=== PATIENT | female | born 1970 | race Caucasian/White ===

== ENCOUNTER → 2018-05-07 | Outpatient (CLI) | payer OTHER ==
[~2018-05-07] MED LIST: DICL75ER PO; ESTR2 PO; HYDMETSO BOTHEYES; IBUP800 PO; MILK OF MAGNESIA PO; NAPR500 PO; PREG150 PO; PROM25 PO; Percocet 10-321 EACH PO; Polymyxin B-Tmp10 ML OD; SIME80CH PO; TRAM50 PO; Tylenol325 MG PO; VITS/SUPPS
[2018-05-09 14:07] LABS: COTININE Negative ng/mL (Cutoff=300)
== END | disposition home or self-care (01) ==
LOC: LAB SHORT 13:42 → LAB 13:42
PROVIDERS: Orthopaedic Surgery
DX: F17.200 Nicotine dependence, unspecified, uncomplicated (principal); Z79.899 Other long term (current) drug therapy

== ENCOUNTER 2018-06-11 13:15 | Day surgery (SDC) | payer OTHER ==
[~2018-06-11] VITALS: Ht 165.1 cm; Wt 107.5 kg
[~2018-06-11 13:15] MED LIST changes: +AM STRESS PO; +ANDROGEL75 GM PO; +DHEA PO; +Furosemide20 MG PO; +NP THYROID90 MG PO; +POTA10T PO; +PROG100 PO; +Zantac150 MG PO
--- NOTE | 2018-06-11 13:39 | NUR ---
Ambulatory in Day Surgery History, Chart, Medications and Allergies reviewed before start of procedure.Lungs clear T/O to Auscultation. Patient confirms NPO status and agrees with scheduled surgery.
--- NOTE | 2018-06-11 19:26 | NUR ---
SHIFT SUMMARY POD #0 RIGHT TKA PT IS TOLERATING PO INTAKE. 2 OXYCODONE & TORADOL GIVEN FOR PAIN. ANGELI WRAP APPEARS C/D/I. TEDS, POLAR PACK & SCD'S ARE IN PLACE. CIRC WNL. CALL LIGHT IN REACH
[2018-06-12 04:25] LABS: BASOPHILS ABSOLUTE AUTO 0.06 K/mm3 (0.00-0.23); BASOPHILS PERCENT AUTO 0 % (0-2); EOSINOPHILS ABSOLUTE AUTO 0.08 K/mm3 (0.00-0.68); EOSINOPHILS PERCENT AUTO 1 % (0-6); Hematocrit 37.7 % (33.0-51.0); Hemoglobin 12.5 g/dL (11.5-16.0); IMMATURE GRAN ABSOLUTE AUTO 0.09 K/mm3 (0.00-0.10); IMMATURE GRAN PERCENT AUTO 1 % (0-1); LYMPHOCYTES ABSOLUTE AUTO 2.14 K/mm3 (0.84-5.20); LYMPHOCYTES PERCENT AUTO 13 % (21-46); MONOCYTES ABSOLUTE AUTO 1.76 K/mm3 (0.16-1.47); MONOCYTES PERCENT AUTO 10 % (4-13); Mean Corpuscular HGB 29.5 pg (26.0-34.0); Mean Corpuscular HGB Conc 33.2 g/dL (31.5-36.5); Mean Corpuscular Volume 89 fL (80-100); NEUTROPHILS ABSOLUTE AUTO 12.91 K/mm3 (1.96-9.15); NEUTROPHILS PERCENT AUTO 76 % (41-73); Platelet Count 271 K/mm3 (150-400); RDW Coefficient Variation 12.4 % (11.7-14.2); RDW Standard Deviation 40.4 fL (35.1-46.3); Red Blood Cell Count 4.24 M/mm3 (3.80-5.20); White Blood Cell Count 17.04 K/mm3 (4.00-11.30)
--- NOTE | 2018-06-12 04:28 | NUR ---
POD 1 S/P RTKA. HAS DONE WELL DURING NIGHT. PT HAS BEEN A BIT MORE PAINFUL DURING SHIFT REQUIRING IV NARCOTICS. PT HAS BEEN UP AMBULATING IN HALLWAY AND TOLERATING WELL. PT DID GET NAUSEOUS ONCE BUT NO EMESIS. VOIDING WELL. DRESSING CDI WITH GOOD CIRC CHECKS. PLAN FOR DC HOME TODAY AFTER CLEARS PT/OT
[2018-06-12 04:48] LABS: Anion Gap 7 mmol/L (6-16); Blood Urea Nitrogen 12 mg/dL (8-24); Bun/Creatinine Ratio 27.1 (12.0-20.0); CO2, Blood 25 mmol/L (21-32); Calcium, Blood 8.4 mg/dL (8.5-10.1); Chloride, Blood 107 mmol/L (98-108); Creatinine, Blood 0.44 mg/dL (0.40-1.00); Glomerular Filtration Rate >60 (60-); Glucose, Blood 104 mg/dL (70-99); Magnesium, Blood 2.1 mg/dL (1.6-2.4); Potassium, Blood 3.8 mmol/L (3.5-5.5); Sodium, Blood 139 mmol/L (136-145)
--- NOTE | 2018-06-12 06:53 | NUR ---
recvd report from previous shift rn kaden, pt sitting up in bed, a/0 x 4, pleasant/cooperative, bed in lowest position, bed rails up x 2, call light within reach
--- NOTE | 2018-06-12 09:06 | NUR ---
physical therapy working with patient
[2018-06-12] MEDS ORDERED: Percocet 5-3251 EACH PO (15:25)
[2018-06-12] MEDS ORDERED: ASPI81CH PO (15:26)
--- NOTE | 2018-06-12 16:23 | NUR ---
pt provided with discharge instructions and printed material, peripheral iv removed wnl. pt provided with aquacel dressing for one week change. pt's belongings taken to car by her daughter. pt escorted to vehicle via wheelchair
== END 2018-06-12 16:22 | disposition home or self-care (01) ==
LOC: ORSCMMR 13:15 → ORD 15:00 → SURS 17:23 → ORSCMMR 06-12 16:22
PROVIDERS: Orthopaedic Surgery
PROC: 0SRC0JA Replacement of Right Knee Joint with Synthetic Substitute, Uncemented, Open Approach (ICD-10-PCS; principal; 2018-06-11 15:00)
DX: M17.11 Unilateral primary osteoarthritis, right knee (principal); Z01.818 Encounter for other preprocedural examination; E03.9 Hypothyroidism, unspecified; F17.210 Nicotine dependence, cigarettes, uncomplicated; E66.01 Morbid (severe) obesity due to excess calories; Z68.39 Body mass index [BMI] 39.0-39.9, adult; Z79.899 Other long term (current) drug therapy
CPT/HCPCS: 36415; 73560-RT; 80048; 83735; 85025; 86850; 86900; 86901; 88300; 97110; 97116; 97162; 97530; C1776; J0171; J0735; J1100; J1170; J1885; J2250; J2405; J2795; J3010; J3370; J7120; Q0163

== ENCOUNTER → 2019-05-23 | Outpatient (CLI) | payer OTHER ==
[~2019-05-23] MED LIST changes: +ASPI81CH PO; +Percocet 5-3251 EACH PO
== END | disposition home or self-care (01) ==
LOC: LAB EV 10:02 → LAB SHORT 10:02
DX: J02.9 Acute pharyngitis, unspecified (principal)
CPT/HCPCS: 87081

== ENCOUNTER → 2021-04-02 | Outpatient (CLI) | payer OTHER ==
[2021-04-12 12:10] LABS: COTININE <10.0 ng/mL (.); NICOTINE <10.0 ng/mL (.)
== END | disposition home or self-care (01) ==
LOC: LAB SHORT 09:26
PROVIDERS: Orthopaedic Surgery
DX: Z09 Encounter for follow-up examination after completed treatment for conditions other than malignant neoplasm (principal); Z87.891 Personal history of nicotine dependence
CPT/HCPCS: G0480

== ENCOUNTER 2021-05-15 08:04 | Day surgery (SDC) | payer OTHER ==
[~2021-05-15] VITALS: Ht 165.1 cm; Wt 79.6 kg
[~2021-05-15 08:04] MED LIST changes: -ANDROGEL75 GM PO; +ANDROGEN PO; +NABU500 PO
--- NOTE | 2021-05-15 08:59 | NUR ---
PT ADMITTED TO [facility]. AGREES WITH PLANNED SURGERY.
--- NOTE | 2021-05-15 16:07 | NUR ---
SHIFT SUMMARY PT A&OX4, VSS/RA. S/P L TKA, AQUACEL/ANGELI WRAP CDI, POLAR NEREIDA/TEDS/SCDS ON, ELEVATED. PAIN MANAGED WITH TYLENOL, TORADOL AND 5 MG OXY. GIOVANNY PO. AMB SBA W/FWW & GB, UP TO CHAIR. PHYSICAL THERAPY EVAL'D, WILL BE BACK IN AM. VOIDING. WILL REPORT TO CRYTSAL SANFORD RN.
--- NOTE | 2021-05-16 03:12 | NUR ---
SHIFT SUMMARY A/O X4. POD2 L TKA- AQUACEL AND ANGELI WRAP IN PLACE, C/D/I. AMBULATING TO THE BATHROOM WITH FWW, GB, AND SBA. TOLERATING PO INTAKE. VOIDING. MANAGING PAIN WITH PO PAIN MEDICATION. WILL CONTINUE TO MONITOR AND REPORT TO ONCOMING RN.
[2021-05-16 04:37] LABS: BASOPHILS ABSOLUTE AUTO 0.02 K/mm3 (0.00-0.23); BASOPHILS PERCENT AUTO 0 % (0-2); EOSINOPHILS ABSOLUTE AUTO 0.03 K/mm3 (0.00-0.68); EOSINOPHILS PERCENT AUTO 0 % (0-6); Hematocrit 36.6 % (33.0-51.0); Hemoglobin 12.3 g/dL (11.5-16.0); IMMATURE GRAN ABSOLUTE AUTO 0.05 K/mm3 (0.00-0.10); IMMATURE GRAN PERCENT AUTO 0 % (0-1); LYMPHOCYTES ABSOLUTE AUTO 2.62 K/mm3 (0.84-5.20); LYMPHOCYTES PERCENT AUTO 18 % (21-46); MONOCYTES ABSOLUTE AUTO 1.45 K/mm3 (0.16-1.47); MONOCYTES PERCENT AUTO 10 % (4-13); Mean Corpuscular HGB 29.3 pg (26.0-34.0); Mean Corpuscular HGB Conc 33.6 g/dL (31.5-36.5); Mean Corpuscular Volume 87 fL (80-100); Mean Platelet Volume 11.2 fL (9.1-12.4); NEUTROPHILS ABSOLUTE AUTO 10.32 K/mm3 (1.96-9.15); NEUTROPHILS PERCENT AUTO 71 % (41-73); Platelet Count 218 K/mm3 (150-400); RDW Coefficient Variation 12.2 % (11.7-14.2); White Blood Cell Count 14.49 K/mm3 (4.00-11.30)
[2021-05-16 04:58] LABS: Anion Gap 6 mmol/L (6-16); Blood Urea Nitrogen 13 mg/dL (8-24); Bun/Creatinine Ratio 31.6 (12.0-20.0); CO2, Blood 27 mmol/L (21-32); Calcium, Blood 8.5 mg/dL (8.5-10.1); Chloride, Blood 107 mmol/L (98-108); Creatinine, Blood 0.41 mg/dL (0.40-1.00); Glomerular Filtration Rate >60 (60-); Glucose, Blood 109 mg/dL (70-99); Potassium, Blood 3.9 mmol/L (3.5-5.5); Sodium, Blood 140 mmol/L (136-145)
[2021-05-16] MEDS ORDERED: ASPI81CH PO (08:49)
[2021-05-16] MEDS ORDERED: OXAYDO5 M1 PO (08:50)
--- NOTE | 2021-05-16 11:38 | NUR ---
DISCHARGE PT DISCHARGED HOME FROM UNIT AT APROX 1138. PT GIVEN WRITTEN AND VERBAL DISCHARGE INSTRUCTIONS AND VERBALIZED UNDERSTANDING OF THESE INSTRUCTIONS. PT CLEARED BY PT, VOIDING, TAKING GOOD PO WITH NO C/O N/V. WC TO CAR, ASSIST W/WALKER INTO CAR. PT TOLERATED WELL.
== END 2021-05-16 11:38 | disposition home or self-care (01) ==
LOC: SURS 08:04 → ORSCMMR 08:04 → ORD 11:00 → ORSCMMR 11:00 → SURS 13:29 → ORSCMMR 05-16 11:38
PROVIDERS: Orthopaedic Surgery
PROC: 0SRD0JA Replacement of Left Knee Joint with Synthetic Substitute, Uncemented, Open Approach (ICD-10-PCS; principal; 2021-05-15 09:45)
DX: M16.12 Unilateral primary osteoarthritis, left hip (principal); Z87.891 Personal history of nicotine dependence; Z96.651 Presence of right artificial knee joint; E03.9 Hypothyroidism, unspecified; Z79.899 Other long term (current) drug therapy
CPT/HCPCS: 36415; 73560-LT; 80048; 85025; 97110; 97116; 97162; A9270; C1776; J0171; J0690; J0735; J1100; J1170; J1885; J2250; J2405; J2704; J2795; J3010; J7120